=== PATIENT | male | born 2000 | race African-American/Black ===

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

== ENCOUNTER 2021-06-22 14:16 | Emergency (ER) | payer OTHER, BC ==
[~2021-06-22] VITALS: Ht 177.8 cm; Wt 80.0 kg
[2021-06-22 16:21] VITALS: BP 127/89
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
== END 2021-06-22 17:22 | disposition home or self-care (01) ==
LOC: ER 14:16
DX: S16.1XXA Strain of muscle, fascia and tendon at neck level, initial encounter (principal); V49.59XA Passenger injured in collision with other motor vehicles in traffic accident, initial encounter; Y92.488 Other paved roadways as the place of occurrence of the external cause; Y93.89 Activity, other specified; Y99.8 Other external cause status
CPT/HCPCS: 99282